=== PATIENT | female | born 1940 | race Caucasian/White ===

== ENCOUNTER 2018-12-12 12:52 | Emergency (ER) | payer MEDICARE ==
[2018-12-12 13:00] VITALS: RESP 18; TEMP 97.6
[2018-12-12] MEDS ORDERED: SODIUM CHLORIDE 0.9% 1,000 ML IV STA (14:11)
[2018-12-12 14:17] LABS: Basophils # (A) 0.1 k/uL (0-0.2); Basophils % (A) 1 %; Eosinophils # (A) 0.1 k/uL (0-0.7); Eosinophils % (A) 1 %; HCT 37.1 % (34.0-46.0); Lymphocytes % (A) 17 %; MCH 27.9 pg (25.0-35.0); MCHC 32.5 g/dL (31.0-37.0); Mean Platelet Volume 6.7; Monocytes # (A) 0.4 k/uL (0-1.0); Monocytes % (A) 7 %; Neutrophils # (A) 4.2 k/uL (1.3-7.7); Neutrophils % (A) 72 %; Platelet Count 326 k/uL (150-450); RBC 4.31 m/uL (3.80-5.40); RDW 13.3 % (11.5-15.5); WBC 5.9 k/uL (3.8-10.6)
[2018-12-12 14:26] LABS: ALT 20 U/L (9-52); AST 29 U/L (14-36); African American GFR (CKD) >90 (>60 ml/min/1.73 sqM); Albumin 4.4 g/dL (3.5-5.0); Alkaline Phosphatase 103 U/L (38-126); Anion Gap 10 mmol/L; Blood Urea Nitrogen 14 mg/dL (7-17); Calcium 9.5 mg/dL (8.4-10.2); Carbon Dioxide 26 mmol/L (22-30); Chloride 106 mmol/L (98-107); Glucose 114 mg/dL (74-99); Magnesium 2.5 mg/dL (1.6-2.3); Sodium 142 mmol/L (137-145); Total Bilirubin 0.2 mg/dL (0.2-1.3)
[2018-12-12 14:29] LABS: INR 0.9 (<1.2)
[2018-12-12] MEDS ORDERED: SODIUM CHLORIDE 0.9% 1,000 ML IV ONE (14:36)
--- NOTE | 2018-12-12 14:48 | XR ---
EXAMINATION TYPE: XR chest 2V DATE OF EXAM: 12/12/2018 COMPARISON: 12/01/2010 HISTORY: Shortness of breath TECHNIQUE: Frontal and lateral views of the chest are obtained. FINDINGS: Scattered senescent parenchymal changes noted. Hyperinflation compatible with COPD. No evidence for infiltrate. No evidence for atelectasis. Heart size is stable. Mediastinal structures are stable and grossly unremarkable. No evidence for hilar prominence. Degenerative changes dorsal spine. IMPRESSION: 1. No evidence for acute pulmonary disease.
[2018-12-12 15:42] LABS: Appearance,Urine Clear (Clear); Bilirubin,Urine Negative (Negative); Blood,Urine Negative (Negative); Color,Urine Light Yellow; Glucose,Urine (UA) Negative (Negative); Ketones,Urine Negative (Negative); Leukocyte Esterase,Urine Negative (Negative); Nitrite,Urine Negative (Negative); Protein,Urine Negative (Negative); Specific Gravity,Urine 1.004 (1.001-1.035); Urobilinogen,Urine <2.0 mg/dL (<2.0)
[2018-12-12 16:08] VITALS: BP 119/55; PULSE 109
--- NOTE | 2018-12-12 16:21 | ED ---
General Adult HPI - General Source: patient, RN notes reviewed Mode of arrival: ambulatory Limitations: no limitations <Serge Ashraf - Last Filed: 12/12/18 16:21> <Memo Contreras - Last Filed: 12/12/18 16:37> - General Chief complaint: Weakness Stated complaint: Weakness Time Seen by Provider: 12/12/18 14:02 - History of Present Illness Initial comments: 78-year-old female presents to the emergency department for chief complaint of weakness. Patient states that on Sunday she had a panic attack and has been having recurrent panic attacks since that time. States she gets a feeling through her chest starts to feel very anxious. States she has a history of anxiety and is currently taking Xanax but does not think her dose is high enough. States that these panic attacks are really getting to her and she is starting to feel more weak than normal. Since that today she went to go throw her old plants away and could not do so because she felt weak so went into the house. Patient denied any chest pain or shortness of breath. Denies any cardiac history.Patient has no other complaints at this time including shortness of breath, chest pain, abdominal pain, nausea or vomiting, headache, or visual changes. (Serge Ashraf) - Related Data Home Medications Medication Instructions Recorded Confirmed ALPRAZolam [Xanax] 0.25 mg PO TID PRN 12/12/18 12/12/18 Albuterol Inhaler [Ventolin Hfa 1 - 2 puff INHALATION RT-Q6H PRN 12/12/18 12/12/18 Inhaler] Allergies Allergy/AdvReac Type Severity Reaction Status Date / Time amoxicillin Allergy Itching Verified 12/12/18 13:39 cephalexin [From Keflex] Allergy Itching Verified 12/12/18 13:39 erythromycin base Allergy Itching Verified 12/12/18 13:39 nystatin Allergy Rash/Hives Verified 12/12/18 13:39 Penicillins Allergy Itching Verified 12/12/18 13:39 Review of Systems ROS Other: All systems not noted in ROS Statement are negative. <Serge Ashraf - Last Filed: 12/12/18 16:21> ROS Other: All systems not noted in ROS Statement are negative. <Memo Contreras - Last Filed: 12/12/18 16:37> ROS Statement: Those systems with pertinent positive or pertinent negative responses have been documented in the HPI. Past Medical History Past Medical History: Asthma History of Any Multi-Drug Resistant Organisms: None Reported Past Surgical History: Hysterectomy, Tonsillectomy Past Psychological History: Anxiety Smoking Status: Never smoker Past Alcohol Use History: None Reported Past Drug Use History: None Reported <Serge Ashraf - Last Filed: 12/12/18 16:21> General Exam Limitations: no limitations General appearance: alert, in no apparent distress Head exam: Present: atraumatic, normocephalic, normal inspection Eye exam: Present: normal appearance, PERRL, EOMI. Absent: scleral icterus, conjunctival injection, periorbital swelling ENT exam: Present: normal exam, mucous membranes moist Neck exam: Present: normal inspection, full ROM. Absent: tenderness, meningismus, lymphadenopathy Respiratory exam: Present: normal lung sounds bilaterally. Absent: respiratory distress, wheezes, rales, rhonchi, stridor Cardiovascular Exam: Present: regular rate, normal rhythm, normal heart sounds. Absent: systolic murmur, diastolic murmur, rubs, gallop, clicks GI/Abdominal exam: Present: soft, normal bowel sounds. Absent: distended, tenderness, guarding, rebound, rigid Neurological exam: Present: alert, oriented X3, CN II-XII intact, normal gait, other (GCS 15) Psychiatric exam: Present: normal affect, normal mood, anxious <Serge Ashraf - Last Filed: 12/12/18 16:21> Course <Memo Contreras - Last Filed: 12/12/18 16:37> Vital Signs 12/12/18 12/12/18 12/12/18 12:56 14:11 14:24 Temperature 97.6 F Pulse Rate 107 H 71 93 Respiratory 18 18 18 Rate Blood Pressure 150/68 89/47 112/63 O2 Sat by Pulse 100 95 97 Oximetry 12/12/18 12/12/18 15:32 16:07 Temperature Pulse Rate 97 109 H Respiratory 18 18 Rate Blood Pressure 112/62 119/55 O2 Sat by Pulse 99 97 Oximetry - Reevaluation(s) Reevaluation #1: 12/12/18 16:36 PA supervision: I proceeded [id number] evaluation patient did discuss the findings with her and her family. She is feeling much improved this time after IV hydration. After discussion the patient would like to go home she'll be discharged with follow-up with her doctor. She is return any issues. (Memo Contreras) EKG Findings - EKG Comments: EKG Findings:: Sinus rhythm with PACs, ventricular rate 91, CA interval 144, QTC 425 <Serge Ashraf - Last Filed: 12/12/18 16:21> Medical Decision Making - Lab Data Result diagrams: 12/12/18 14:05 12/12/18 14:05 <Serge Ashraf - Last Filed: 12/12/18 16:21> - Lab Data Result diagrams: 12/12/18 14:05 12/12/18 14:05 <Memo Contreras - Last Filed: 12/12/18 16:37> - Medical Decision Making 78-year-old female presents to the emergency department for anxiety weakness. Patient states she has had an increase in her panic attacks over the past week. States this is because she is getting a dental procedure on Sunday and is concerned because he may have to remove a tooth. States that she takes Xanax but it is not seem to be helping. Denies any chest pain or shortness of breath. States that today she went to take her old plants out but felt weak so came into the emergency department. Patient denies any suicidal thoughts. On presentation patient is hemodynamically stable. After IV was placed she had a vasovagal episode without syncope. She was given fluids which did normalize her blood pressure. CBC and CMP were obtained which were normal. Troponin was negative. EKG showed sinus rhythm with PACs however patient was reviewed on the monitor several times that showed a normal sinus rhythm urine and chest x-ray did not show any evidence of infection. Case was reviewed with Dr. Contreras who had evaluated the patient at bedside as well. We discussed admission versus discharge and patient prefers to follow up outpatient. She is feeling much better after fluids were given and agrees she wants to follow up with her primary care doctor as well as with counseling. She is aware that she can return anytime for any worsening symptoms. (Serge Ashraf) - Lab Data Lab Results 12/12/18 12/12/18 12/12/18 Range/Units 14:05 14:05 14:05 WBC 5.9 (3.8-10.6) k/uL RBC 4.31 (3.80-5.40) m/uL Hgb 12.0 (11.4-16.0) gm/dL Hct 37.1 (34.0-46.0) % MCV 86.0 (80.0-100.0) fL MCH 27.9 (25.0-35.0) pg MCHC 32.5 (31.0-37.0) g/dL RDW 13.3 (11.5-15.5) % Plt Count 326 (150-450) k/uL Neutrophils % 72 % Lymphocytes % 17 % Monocytes % 7 % Eosinophils % 1 % Basophils % 1 % Neutrophils # 4.2 (1.3-7.7) k/uL Lymphocytes # 1.0 (1.0-4.8) k/uL Monocytes # 0.4 (0-1.0) k/uL Eosinophils # 0.1 (0-0.7) k/uL Basophils # 0.1 (0-0.2) k/uL PT (9.0-12.0) sec INR (<1.2) APTT (22.0-30.0) sec Sodium 142 (137-145) mmol/L Potassium 4.0 (3.5-5.1) mmol/L Chloride 106 (98-107) mmol/L Carbon Dioxide 26 (22-30) mmol/L Anion Gap 10 mmol/L BUN 14 (7-17) mg/dL Creatinine 0.66 (0.52-1.04) mg/dL Est GFR (CKD-EPI)AfAm >90 (>60 ml/min/1.73 sqM) Est GFR (CKD-EPI)NonAf 86 (>60 ml/min/1.73 sqM) Glucose 114 H (74-99) mg/dL Plasma Lactic Acid Zeke 1.1 (0.7-2.0) mmol/L Calcium 9.5 (8.4-10.2) mg/dL Phosphorus 4.0 (2.5-4.5) mg/dL Magnesium 2.5 H (1.6-2.3) mg/dL Total Bilirubin 0.2 (0.2-1.3) mg/dL AST 29 (14-36) U/L ALT 20 (9-52) U/L Alkaline Phosphatase 103 (38-126) U/L Troponin I (0.000-0.034) ng/mL Total Protein 7.0 (6.3-8.2) g/dL Albumin 4.4 (3.5-5.0) g/dL TSH 1.690 (0.465-4.680) mIU/L Urine Color Urine Appearance (Clear) Urine pH (5.0-8.0) Ur Specific [place] (1.001-1.035) Urine Protein (Negative) Urine Glucose (UA) (Negative) Urine Ketones (Negative) Urine Blood (Negative) Urine Nitrite (Negative) Urine Bilirubin (Negative) Urine Urobilinogen (<2.0) mg/dL Ur Leukocyte Esterase (Negative) 12/12/18 12/12/18 12/12/18 Range/Units 14:05 14:05 15:15 WBC (3.8-10.6) k/uL RBC (3.80-5.40) m/uL Hgb (11.4-16.0) gm/dL Hct (34.0-46.0) % MCV (80.0-100.0) fL MCH (25.0-35.0) pg MCHC (31.0-37.0) g/dL RDW (11.5-15.5) % Plt Count (150-450) k/uL Neutrophils % % Lymphocytes % % Monocytes % % Eosinophils % % Basophils % % Neutrophils # (1.3-7.7) k/uL Lymphocytes # (1.0-4.8) k/uL Monocytes # (0-1.0) k/uL Eosinophils # (0-0.7) k/uL Basophils # (0-0.2) k/uL PT 10.0 (9.0-12.0) sec INR 0.9 (<1.2) APTT 23.0 (22.0-30.0) sec Sodium (137-145) mmol/L Potassium (3.5-5.1) mmol/L Chloride (98-107) mmol/L Carbon Dioxide (22-30) mmol/L Anion Gap mmol/L BUN (7-17) mg/dL Creatinine (0.52-1.04) mg/dL Est GFR (CKD-EPI)AfAm (>60 ml/min/1.73 sqM) Est GFR (CKD-EPI)NonAf (>60 ml/min/1.73 sqM) Glucose (74-99) mg/dL Plasma Lactic Acid Zeke (0.7-2.0) mmol/L Calcium (8.4-10.2) mg/dL Phosphorus (2.5-4.5) mg/dL Magnesium (1.6-2.3) mg/dL Total Bilirubin (0.2-1.3) mg/dL AST (14-36) U/L ALT (9-52) U/L Alkaline Phosphatase (38-126) U/L Troponin I <0.012 (0.000-0.034) ng/mL Total Protein (6.3-8.2) g/dL Albumin (3.5-5.0) g/dL TSH (0.465-4.680) mIU/L Urine Color Light Yellow Urine Appearance Clear (Clear) Urine pH 8.0 (5.0-8.0) Ur Specific [place] 1.004 (1.001-1.035) Urine Protein Negative (Negative) Urine Glucose (UA) Negative (Negative) Urine Ketones Negative (Negative) Urine Blood Negative (Negative) Urine Nitrite Negative (Negative) Urine Bilirubin Negative (Negative) Urine Urobilinogen <2.0 (<2.0) mg/dL Ur Leukocyte Esterase Negative (Negative) Disposition Is patient prescribed a controlled substance at d/c from ED?: No Time of Disposition: 16:19 <Serge Ashraf - Last Filed: 12/12/18 16:21> <Memo Contreras - Last Filed: 12/12/18 16:37> Clinical Impression: Anxiety, Weakness Disposition: HOME SELF-CARE Condition: Good Instructions (If sedation given, give patient instructions): Generalized Anxiety Disorder (ED), Weakness (ED) Additional Instructions: Please follow up with primary care in 1-2 days. If you have any worsening symptoms return here to the emergency department. Referrals: Ruy Winter MD [Primary Care Provider] - 1-2 days
== END 2018-12-12 16:49 | disposition home or self-care (01) ==
LOC: EC 12:52
DX: F41.9 Anxiety disorder, unspecified (principal); R53.1 Weakness; F41.0 Panic disorder [episodic paroxysmal anxiety]; J45.909 Unspecified asthma, uncomplicated; Z79.01 Long term (current) use of anticoagulants; Z79.51 Long term (current) use of inhaled steroids; Z79.899 Other long term (current) drug therapy; Z88.1 Allergy status to other antibiotic agents; Z88.0 Allergy status to penicillin
CPT/HCPCS: 36415; 71046; 80053; 81003; 83605; 83735; 84100; 84443; 84484; 85025; 85610; 85730; 93005; 96360; 99285

== ENCOUNTER 2018-12-29 12:54 | Emergency (ER) | payer MEDICARE ==
[2018-12-29 13:00] VITALS: TEMP 97.4
[2018-12-29] MEDS ORDERED: SODIUM CHLORIDE 0.9% 500 ML 500 ML IV STA (13:11)
--- NOTE | 2018-12-29 13:16 | ED ---
General Adult HPI - General Chief complaint: Anxiety Stated complaint: near syncope, weakness Time Seen by Provider: 12/29/18 12:55 Source: patient, RN notes reviewed Mode of arrival: wheelchair Limitations: no limitations - History of Present Illness Initial comments: This is a 78-year-old female with past medical history significant for anxiety. Patient states she's been weak for approximately 3 weeks ago she was seen in the emergency department and since followed up with a family practice doctor. She has had her antianxiety meds increased and she was started on another nightly antianxiety medication. She comes in today because she thought she was having panic attacks his morning but her Xanax did not seem to help. Patient states because of that and the fact that she has been feeling progressively weaker she decided come to the emergency department. Patient denies any headache patient denies any focal weakness patient denies any numbness. Patient denies any chest pain difficulty breathing or shortness of breath. Patient denies any recent fever chills or cough. Patient denies abdominal pain. Patient denies any nausea vomiting diarrhea. Patient states she is sometimes lightheaded when she stands. Patient states she is drinking enough but she doesn't believe she is eating enough and she's probably lost 4 pounds in the last month. Patient denies any pain to any of her extremities. - Related Data Home Medications Medication Instructions Recorded Confirmed Albuterol Inhaler [Ventolin Hfa 2 puff INHALATION RT-Q6H PRN 12/12/18 12/29/18 Inhaler] ALPRAZolam [Xanax] 0.5 mg PO Q6H PRN 12/29/18 12/29/18 Citalopram Hydrobromide [CeleXA] 10 mg PO HS 12/29/18 12/29/18 Allergies Allergy/AdvReac Type Severity Reaction Status Date / Time amoxicillin Allergy Itching Verified 12/29/18 13:05 cephalexin [From Keflex] Allergy Itching Verified 12/29/18 13:05 erythromycin base Allergy Itching Verified 12/29/18 13:05 nystatin Allergy Rash/Hives Verified 12/29/18 13:05 Penicillins Allergy Itching Verified 12/29/18 13:05 theophylline [From Kishan-Dur] AdvReac Rapid Verified 12/29/18 13:05 Heart Rate Review of Systems ROS Statement: Those systems with pertinent positive or pertinent negative responses have been documented in the HPI. ROS Other: All systems not noted in ROS Statement are negative. Past Medical History Past Medical History: Asthma History of Any Multi-Drug Resistant Organisms: None Reported Past Surgical History: Hysterectomy, Tonsillectomy Past Psychological History: Anxiety Smoking Status: Never smoker Past Alcohol Use History: None Reported Past Drug Use History: None Reported General Exam - General Exam Comments Initial Comments: GENERAL: Patient is well-developed and well-nourished. Patient is nontoxic and well- hydrated and is in no acute distress. ENT: Neck is soft and supple. No significant lymphadenopathy is noted. Oropharynx is clear. Moist mucous membranes. Neck has full range of motion without eliciting any pain. EYES: The sclera were anicteric and conjunctiva were pink and moist. Extraocular movements were intact and pupils were equal round and reactive to light. Eyelids were unremarkable. PULMONARY: Unlabored respirations. Good breath sounds bilaterally. No audible rales rhonchi or wheezing was noted. CARDIOVASCULAR: There is a regular rate and rhythm without any murmurs gallops or rubs. ABDOMEN: Soft and nontender with normal bowel sounds. SKIN: Skin is clear with no lesions or rashes and otherwise unremarkable. NEUROLOGIC: Patient is alert and oriented x3. Cranial nerves II through XII are grossly intact. Motor and sensory are also intact. Normal speech, volume and content. Symmetrical smile. MUSCULOSKELETAL: Normal extremities with adequate strength and full range of motion. LYMPHATICS: No significant lymphadenopathy is noted PSYCHIATRIC: Patient appears moderately anxious. Limitations: no limitations Course Vital Signs 12/29/18 12:56 Temperature 97.4 F L Pulse Rate 76 Respiratory 22 Rate Blood Pressure 131/64 O2 Sat by Pulse 100 Oximetry Medical Decision Making - Medical Decision Making EKG shows normal sinus rhythm at a rate of 79 bpm MS interval 240 QRS is 78 QT interval 356 QTC is 408. Patient's EKG shows no ST segment elevation or depression or T wave abnormalities are noted. I spoke to the patient about all of her lab results. I indicated to the patient denies that her symptoms were secondary to anxiety she was in agreement with that. Patient states she'll follow-up with her physician as an outpatient. Patient states currently she does not feel anxious at all she believes her Xanax finally kicked in that she took at home. - Lab Data Result diagrams: 12/29/18 13:40 12/29/18 13:40 Lab Results 12/29/18 12/29/18 12/29/18 Range/Units 13:40 13:40 13:40 WBC 6.7 (3.8-10.6) k/uL RBC 4.07 (3.80-5.40) m/uL Hgb 11.7 (11.4-16.0) gm/dL Hct 36.6 (34.0-46.0) % MCV 90.0 (80.0-100.0) fL MCH 28.8 (25.0-35.0) pg MCHC 32.0 (31.0-37.0) g/dL RDW 12.4 (11.5-15.5) % Plt Count 342 (150-450) k/uL Neutrophils % 73 % Lymphocytes % 16 % Monocytes % 6 % Eosinophils % 1 % Basophils % 1 % Neutrophils # 4.9 (1.3-7.7) k/uL Lymphocytes # 1.1 (1.0-4.8) k/uL Monocytes # 0.4 (0-1.0) k/uL Eosinophils # 0.1 (0-0.7) k/uL Basophils # 0.1 (0-0.2) k/uL PT (9.0-12.0) sec INR (<1.2) APTT (22.0-30.0) sec Sodium 137 (137-145) mmol/L Potassium 4.3 (3.5-5.1) mmol/L Chloride 103 (98-107) mmol/L Carbon Dioxide 26 (22-30) mmol/L Anion Gap 8 mmol/L BUN 11 (7-17) mg/dL Creatinine 0.67 (0.52-1.04) mg/dL Est GFR (CKD-EPI)AfAm >90 (>60 ml/min/1.73 sqM) Est GFR (CKD-EPI)NonAf 85 (>60 ml/min/1.73 sqM) Glucose 167 H (74-99) mg/dL Plasma Lactic Acid Zeke 1.7 (0.7-2.0) mmol/L Calcium 9.3 (8.4-10.2) mg/dL Magnesium 2.1 (1.6-2.3) mg/dL Total Bilirubin 0.2 (0.2-1.3) mg/dL AST 30 (14-36) U/L ALT 17 (9-52) U/L Alkaline Phosphatase 138 H (38-126) U/L Troponin I (0.000-0.034) ng/mL Total Protein 7.1 (6.3-8.2) g/dL Albumin 4.4 (3.5-5.0) g/dL Urine Color Urine Appearance (Clear) Urine pH (5.0-8.0) Ur Specific [place] (1.001-1.035) Urine Protein (Negative) Urine Glucose (UA) (Negative) Urine Ketones (Negative) Urine Blood (Negative) Urine Nitrite (Negative) Urine Bilirubin (Negative) Urine Urobilinogen (<2.0) mg/dL Ur Leukocyte Esterase (Negative) 12/29/18 12/29/18 12/29/18 Range/Units 13:40 13:40 13:40 WBC (3.8-10.6) k/uL RBC (3.80-5.40) m/uL Hgb (11.4-16.0) gm/dL Hct (34.0-46.0) % MCV (80.0-100.0) fL MCH (25.0-35.0) pg MCHC (31.0-37.0) g/dL RDW (11.5-15.5) % Plt Count (150-450) k/uL Neutrophils % % Lymphocytes % % Monocytes % % Eosinophils % % Basophils % % Neutrophils # (1.3-7.7) k/uL Lymphocytes # (1.0-4.8) k/uL Monocytes # (0-1.0) k/uL Eosinophils # (0-0.7) k/uL Basophils # (0-0.2) k/uL PT 9.9 (9.0-12.0) sec INR 0.9 (<1.2) APTT 23.7 (22.0-30.0) sec Sodium (137-145) mmol/L Potassium (3.5-5.1) mmol/L Chloride (98-107) mmol/L Carbon Dioxide (22-30) mmol/L Anion Gap mmol/L BUN (7-17) mg/dL Creatinine (0.52-1.04) mg/dL Est GFR (CKD-EPI)AfAm (>60 ml/min/1.73 sqM) Est GFR (CKD-EPI)NonAf (>60 ml/min/1.73 sqM) Glucose (74-99) mg/dL Plasma Lactic Acid Zeke (0.7-2.0) mmol/L Calcium (8.4-10.2) mg/dL Magnesium (1.6-2.3) mg/dL Total Bilirubin (0.2-1.3) mg/dL AST (14-36) U/L ALT (9-52) U/L Alkaline Phosphatase (38-126) U/L Troponin I <0.012 (0.000-0.034) ng/mL Total Protein (6.3-8.2) g/dL Albumin (3.5-5.0) g/dL Urine Color Light Yellow Urine Appearance Clear (Clear) Urine pH 6.5 (5.0-8.0) Ur Specific [place] 1.003 (1.001-1.035) Urine Protein Negative (Negative) Urine Glucose (UA) Negative (Negative) Urine Ketones Negative (Negative) Urine Blood Negative (Negative) Urine Nitrite Negative (Negative) Urine Bilirubin Negative (Negative) Urine Urobilinogen <2.0 (<2.0) mg/dL Ur Leukocyte Esterase Negative (Negative) Disposition Clinical Impression: Acute anxiety Disposition: HOME SELF-CARE Condition: Good Instructions (If sedation given, give patient instructions): Generalized Anxiety Disorder (ED) Is patient prescribed a controlled substance at d/c from ED?: No Referrals: Ruy Winter MD [Primary Care Provider] - 1-2 days Time of Disposition: 15:22
[2018-12-29 14:04] LABS: Appearance,Urine Clear (Clear); Basophils # (A) 0.1 k/uL (0-0.2); Basophils % (A) 1 %; Bilirubin,Urine Negative (Negative); Blood,Urine Negative (Negative); Color,Urine Light Yellow; Eosinophils # (A) 0.1 k/uL (0-0.7); Eosinophils % (A) 1 %; Glucose,Urine (UA) Negative (Negative); HCT 36.6 % (34.0-46.0); HGB 11.7 gm/dL (11.4-16.0); Ketones,Urine Negative (Negative); Leukocyte Esterase,Urine Negative (Negative); Lymphocytes # (A) 1.1 k/uL (1.0-4.8); Lymphocytes % (A) 16 %; MCH 28.8 pg (25.0-35.0); Mean Platelet Volume 7.2; Monocytes # (A) 0.4 k/uL (0-1.0); Monocytes % (A) 6 %; Neutrophils # (A) 4.9 k/uL (1.3-7.7); Neutrophils % (A) 73 %; Nitrite,Urine Negative (Negative); PH, Urine 6.5 (5.0-8.0); Platelet Count 342 k/uL (150-450); Protein,Urine Negative (Negative); RBC 4.07 m/uL (3.80-5.40); RDW 12.4 % (11.5-15.5); Specific Gravity,Urine 1.003 (1.001-1.035); Urobilinogen,Urine <2.0 mg/dL (<2.0); WBC 6.7 k/uL (3.8-10.6)
[2018-12-29 14:12] LABS: INR 0.9 (<1.2); Partial Thromboplastin Time 23.7 sec (22.0-30.0); Prothrombin Time 9.9 sec (9.0-12.0)
--- NOTE | 2018-12-29 14:13 | XR ---
EXAMINATION TYPE: XR chest 2V DATE OF EXAM: 12/29/2018 COMPARISON: 12/12/2018 HISTORY: Weakness TECHNIQUE: Frontal and lateral views of the chest are obtained. FINDINGS: Heart is normal. Lungs are clear. Costophrenic angles are clear. Bony thorax is intact. Th ere is osteopenia. There are no hilar masses. IMPRESSION: No active cardiopulmonary disease. No change. Normal heart.
[2018-12-29 14:19] LABS: ALT 17 U/L (9-52); AST 30 U/L (14-36); African American GFR (CKD) >90 (>60 ml/min/1.73 sqM); Albumin 4.4 g/dL (3.5-5.0); Alkaline Phosphatase 138 U/L (38-126); Anion Gap 8 mmol/L; Blood Urea Nitrogen 11 mg/dL (7-17); Calcium 9.3 mg/dL (8.4-10.2); Carbon Dioxide 26 mmol/L (22-30); Chloride 103 mmol/L (98-107); Glucose 167 mg/dL (74-99); Magnesium 2.1 mg/dL (1.6-2.3); Potassium 4.3 mmol/L (3.5-5.1); Sodium 137 mmol/L (137-145); Total Bilirubin 0.2 mg/dL (0.2-1.3); Total Protein 7.1 g/dL (6.3-8.2)
[2018-12-29 15:33] VITALS: BP 158/69; PULSE 89; RESP 16
== END 2018-12-29 15:28 | disposition home or self-care (01) ==
LOC: EC 12:54
DX: F41.9 Anxiety disorder, unspecified (principal); J45.909 Unspecified asthma, uncomplicated; Z88.0 Allergy status to penicillin; Z88.1 Allergy status to other antibiotic agents; Z88.8 Allergy status to other drugs, medicaments and biological substances; Z79.899 Other long term (current) drug therapy
CPT/HCPCS: 36415; 71046; 80053; 81003; 83605; 83735; 84484; 85025; 85610; 85730; 93005; 99284